=== PATIENT | male | born 1985 | race Caucasian/White ===

== ENCOUNTER 2017-08-20 19:22 | Emergency (ER) | payer MEDICAID ==
[~2017-08-20] VITALS: Ht 170.2 cm; Wt 83.9 kg
[2017-08-20] MEDS ORDERED: NKM (19:29)
[2017-08-20] MEDS ORDERED: PREDNISONE20 MG ORAL (20:22)
[2017-08-20] MEDS ORDERED: CIPROFLOXACIN500 M2 ORAL (20:22)
[2017-08-20] MEDS ORDERED: PROMETHAZINE-D118 ML ORAL (20:22)
[2017-08-20 20:28] VITALS: BP 121/75
[2017-08-20 20:32] VITALS: BP 121/75
--- NOTE | 2017-08-20 20:43 | Emergency Room Report ---
History of Present Illness General Chief Complaint: Sore Throat Source: Patient Present Illness [facility] The patient is a 32-year-old male presenting for sore throat and cough for the past week. pain is described as an 8/10 dull ache primarily to the back the throat. Worse with coughing. He states that he frequently gets pharyngitis and is allergic to PCN and macrolides so he is given cipro which usually works. Allergies: Coded Allergies: ERYTHROMYCIN BASE (Verified Allergy, Unknown, 08/20/17) PENICILLINS (Verified Allergy, Unknown, 08/20/17) Patient History Past Medical History: see triage record Pertinent Family History: none Reviewed Nursing Documentation: PMH: Agreed, PSxH: Agreed Nursing Documentation-PMH Past Medical History: No Stated History Review of Systems All Other Systems: negative except mentioned in HPI Physical Exam Vital Signs Date Time Temp Pulse Resp B/P (MAP) Pulse Ox O2 Delivery O2 Flow Rate FiO2 08/20/17 19:26 98.2 73 18 121/75 98 Room Air Sp02 EP Interpretation: reviewed, normal General Appearance: no apparent distress, alert, GCS 15, non-toxic Head: normocephalic, atraumatic Eyes: bilateral eye normal inspection, bilateral eye PERRL ENT: hearing grossly normal, normal pharynx, no angioedema, normal voice, uvula midline, tonsillar swelling, pharyngeal erythema Neck: full range of motion, supple/symm/no masses Respiratory: chest non-tender, lungs clear, normal breath sounds, speaking full sentences Cardiovascular #1: regular rate, rhythm, no edema Musculoskeletal: back normal, gait/station normal, normal range of motion, non- tender Neurologic: alert, oriented x3, responsive, motor strength/tone normal, sensory intact, speech normal Psychiatric: judgement/insight normal, memory normal, mood/affect normal, no suicidal/homicidal ideation Skin: normal color, no rash, warm/dry, well hydrated Lymphatic: adenopathy Medical Decision Making PA Attestation Dr. Martin is my supervising physician. Patient management was discussed with my supervising physician Diagnostic Impression: Primary Impression: Pharyngitis, acute Qualified Codes: J02.9 - Acute pharyngitis, unspecified ER Course The patient is a 32-year-old male presenting for sore throat and cough for the past week Differential diagnosis include but not limited to pharyngitis, sinusitis, AOM, bronchitis, PNA Physical exam: Vitals within normal limits. Afebrile. No apparent distress HEENT exam: There is bilateral tonsillar edema, erythema. Uvula midline. Moist mucous membranes. There is bilateral cervical lymphadenopathy. Lungs are clear to auscultation bilaterally Skin is warm and dry. No rash The patient will be discharged home with a prescription for ciprofloxacin as he is allergic to macrolides and penicillins and is given ER precautions. Patient will followup with primary care He was told that he should follow up with the ENT Last Vital Signs Date Time Temp Pulse Resp B/P (MAP) Pulse Ox O2 Delivery O2 Flow Rate FiO2 08/20/17 19:26 98.2 73 18 121/75 98 Room Air Status: improved Disposition: HOME, SELF-CARE Condition: Improved Scripts Prednisone* (PREDNISONE*) 20 Mg Tablet 40 MG ORAL DAILY, #10 TAB Prov: ÁNGEL FELDER.A. 08/20/17 D-Methorphan Hb/Prometh Hcl* (PROMETHAZINE-DM SYRUP*) 118 Ml Syrup 5 ML ORAL Q6H Y for For Cough, #118 ML 0 Refills Prov: ÁNGEL FELDER.A. 08/20/17 Ciprofloxacin Hcl* (CIPROFLOXACIN HCL*) 500 Mg Tablet 500 MG ORAL EVERY 12 HOURS, #14 TAB 0 Refills Prov: ÁNGEL FELDER.A. 08/20/17 Patient Instructions: Pharyngitis Additional Instructions: I discussed my findings with the patient. All questions and concerns have been answered. Treatment and medication compliance have been addressed. I advised the patient that they need to follow up with PMD in 3-5 days. Return to ED if pain remains or worsens, cough worsens or remains, you notice blood in your sputum, you notice wheezing, you experience a fever, or if needed for any reason. Patient verbalized understanding of discharge instructions. ÁNGEL FELDER Aug 20, 2017 20:43
== END 2017-08-20 20:32 | disposition home or self-care (01) ==
LOC: EMR 20:20
DX: J02.9 Acute pharyngitis, unspecified (principal); Z88.0 Allergy status to penicillin; Z88.8 Allergy status to other drugs, medicaments and biological substances
CPT/HCPCS: 99284

== ENCOUNTER 2018-01-04 20:49 | Emergency (ER) | payer MEDICAID ==
[~2018-01-04] VITALS: Ht 170.2 cm; Wt 81.6 kg
[~2018-01-04 20:49] MED LIST: CIPROFLOXACIN500 M2 ORAL; NKM; PREDNISONE20 MG ORAL; PROMETHAZINE-D118 ML ORAL
[2018-01-04 21:15] VITALS: BP 119/70
[2018-01-04] MEDS ORDERED: PSEUDOEPHEDRINE60 MG PO (21:20)
--- NOTE | 2018-01-04 21:20 | Emergency Room Report ---
History of Present Illness General Chief Complaint: Flu Like Symptoms Source: Patient Present Illness HPI Is a 32-year-old male with no past medical history. He presents with chief complaint of coughing and sore throat. He was seen by his primary care doctor 34 days ago for similar complaint and placed on Cipro. He said not getting better. He came in because coughing has specks of blood in it. Denies any other complaint. No nausea no vomiting. No shortness of breath. No calf swelling. No recent surgery or other risk factor. Allergies: Coded Allergies: ERYTHROMYCIN BASE (Verified Allergy, Unknown, 08/20/17) PENICILLINS (Verified Allergy, Unknown, 08/20/17) Patient History Past Medical History: see triage record, old chart reviewed Past Surgical History: none Pertinent Family History: none Social History: Denies: smoking Immunizations: other Reviewed Nursing Documentation: PMH: Agreed; PSxH: Agreed Nursing Documentation-PMH Past Medical History: No Stated History Review of Systems Eye: Denies: eye pain, blurred vision ENT: Denies: ear pain, nose congestion, throat swelling Respiratory: Reports: cough, sputum; Denies: shortness of breath Cardiovascular: Denies: chest pain, palpitations Gastrointestinal: Denies: abdominal pain, diarrhea, nausea, vomiting Musculoskeletal: Denies: back pain, joint pain Skin: Denies: rash Neurological: Denies: headache, numbness Endocrine: Denies: increased thirst, increased urine Hematologic/Lymphatic: Denies: easy bruising All Other Systems: negative except mentioned in HPI Physical Exam Vital Signs Date Time Temp Pulse Resp B/P (MAP) Pulse Ox O2 Delivery O2 Flow Rate FiO2 01/04/18 21:03 98.6 94 16 119/70 95 98.6 vitals normal Sp02 EP Interpretation: reviewed, normal General Appearance: well appearing, no apparent distress, alert Head: normocephalic, atraumatic Eyes: bilateral eye PERRL, bilateral eye EOMI ENT: hearing grossly normal, normal pharynx, other - left TM with effusion. Dry blood in right nares Neck: full range of motion, supple, no meningismus Respiratory: chest non-tender, lungs clear, normal breath sounds Cardiovascular #1: regular rate, rhythm, no murmur Gastrointestinal: normal bowel sounds, non tender, no mass, no organomegaly, no bruit, non-distended Musculoskeletal: back normal, gait/station normal, normal range of motion Psychiatric: mood/affect normal Skin: warm/dry Medical Decision Making Diagnostic Impression: Primary Impression: Upper respiratory infection, acute ER Course Patient with upper respiratory infection. The blood is probably from the nose. No evidence of ACS, PE, dissection to name a few. We'll discharge home. Last Vital Signs Date Time Temp Pulse Resp B/P (MAP) Pulse Ox O2 Delivery O2 Flow Rate FiO2 01/04/18 21:03 98.6 94 16 119/70 95 98.6 Status: unchanged Disposition: HOME, SELF-CARE Condition: Stable Scripts Pseudoephedrine Hcl* (SUDAFED*) 60 Mg Tablet 60 MG PO Q6H, #20 TAB Prov: ADEBAYO GALVAN M.D. 01/04/18 Additional Instructions: Follow-up with your DrJúnior in 7 days. Return if worse. ADEBAYO GALVAN M.D. Jan 04, 2018 21:20
== END 2018-01-04 21:30 | disposition home or self-care (01) ==
LOC: EMR 21:18
DX: J06.9 Acute upper respiratory infection, unspecified (principal); Z88.0 Allergy status to penicillin
CPT/HCPCS: 99283

== ENCOUNTER 2018-04-01 15:29 | Emergency (ER) | payer MEDICAID ==
[~2018-04-01] VITALS: Ht 170.2 cm; Wt 82.6 kg
[~2018-04-01 15:29] MED LIST changes: +PSEUDOEPHEDRINE60 MG PO
[2018-04-01 16:06] VITALS: BP 107/69
[2018-04-01] MEDS ORDERED: DIPHENHYDRAMINE25 M1 ORAL (16:13)
[2018-04-01] MEDS ORDERED: PREDNISONE20 MG ORAL (16:13)
[2018-04-01] MEDS ORDERED: RANITIDINE HCL150 MG ORAL (16:13)
[2018-04-01 16:25] VITALS: BP 107/69
--- NOTE | 2018-04-01 21:07 | Emergency Room Report ---
History of Present Illness General Chief Complaint: Allergic Reaction Source: Patient Present Illness HPI 33-year-old male presents to ED complaining of rash and swelling to his hands 2 days. Patient states symptoms started shortly after starting doxycycline. Was prescribed doxycycline for symptoms of runny nose, cough, congestion by his PMD. Notes allergies to erythromycin and penicillin previously. Denies any throat swelling or tongue swelling. Denies any shortness of breath. Denies any fevers or chills. No other aggravating relieving factors. Denies any other associated symptoms Allergies: Coded Allergies: DOXYCYCLINE (Verified Allergy, Unknown, 04/01/18) ERYTHROMYCIN BASE (Verified Allergy, Unknown, 08/20/17) PENICILLINS (Verified Allergy, Unknown, 08/20/17) Patient History Past Medical History: none Past Surgical History: none Pertinent Family History: none Social History: Denies: smoking, alcohol use, drug use Immunizations: UTD Reviewed Nursing Documentation: PMH: Agreed; PSxH: Agreed Nursing Documentation-PMH Past Medical History: No Stated History Review of Systems All Other Systems: negative except mentioned in HPI Physical Exam Vital Signs Date Time Temp Pulse Resp B/P (MAP) Pulse Ox O2 Delivery O2 Flow Rate FiO2 04/01/18 15:31 98.0 102 18 107/69 94 Room Air 98.1 Sp02 EP Interpretation: reviewed, normal General Appearance: no apparent distress, alert, GCS 15, non-toxic Head: normocephalic, atraumatic Eyes: bilateral eye normal inspection, bilateral eye PERRL ENT: hearing grossly normal, normal pharynx, no angioedema, normal voice Neck: full range of motion, supple/symm/no masses Respiratory: chest non-tender, lungs clear, normal breath sounds, speaking full sentences Cardiovascular #1: regular rate, rhythm, no edema Cardiovascular #2: 2+ carotid (R), 2+ carotid (L), 2+ radial (R), 2+ radial (L) , 2+ dorsalis pedis (R), 2+ dorsalis pedis (L) Gastrointestinal: normal bowel sounds, non tender, soft, non-distended, no guarding, no rebound Rectal: deferred Genitourinary: normal inspection, no CVA tenderness Musculoskeletal: swelling - bilatearl hands and feet Neurologic: alert, oriented x3, responsive, motor strength/tone normal, sensory intact, speech normal Psychiatric: judgement/insight normal, memory normal, mood/affect normal, no suicidal/homicidal ideation Reflexes: 3+ bicep (R), 3+ bicep (L), 3+ tricep (R), 3+ tricep (L), 3+ knee (R) , 3+ knee (L) Skin: other - urticaria to bilateral hands, feet Lymphatic: no adenopathy Medical Decision Making Diagnostic Impression: Primary Impression: Allergic reaction Qualified Codes: T78.40XA - Allergy, unspecified, initial encounter ER Course Hospital Course 33-year-old male presents ED complaining of rash to hands and swelling after taking doxycycline Differential diagnoses include: allergic reaction, angioedema Clinical course Patient placed on stretcher. After initial history, physical exam reveals a male in no acute distress. There is urticarial rash noted to bilateral hands and feet. Swelling noted to the hands and feet. No stridor or tongue swelling. Lungs clear. I ordered benedryl, prednisone, pepcid here. Head and neck exam relatively unremarkable. I do not believe patient requires antibiotics at this time. Recommend discontinuing doxycycline without alternative antibiotic i. I feel this is a highly complex case requiring extensive working including EKG/Rhythm strip, Xray/CT/US, Blood/urine lab work, repeat exams while in ED, and administration of strong opiates/narcotics for pain control, admission to hospital or close patient follow up. Diagnosis - allergic reaction Stable and discharged to home with prescriptions for Zantac, prednisone, Benadryl. Followup with PMD. Return to ED if symptoms recur or worsen Last Vital Signs Date Time Temp Pulse Resp B/P (MAP) Pulse Ox O2 Delivery O2 Flow Rate FiO2 04/01/18 16:25 98.1 96 18 107/69 98 Room Air 98.1 Status: improved Disposition: HOME, SELF-CARE Condition: Stable Scripts Ranitidine Hcl* (ZANTAC*) 150 Mg Tablet 150 MG ORAL TWICE A DAY for 5 Days, #30 TAB Prov: Son Lester MD 04/01/18 Diphenhydramine Hcl* (DIPHENHYDRAMINE HCL*) 25 Mg Capsule 25 MG ORAL Q6H PRN for Itching for 5 Days, #30 CAP 0 Refills Prov: Son Lester MD 04/01/18 Prednisone* (PREDNISONE*) 20 Mg Tablet 40 MG ORAL DAILY, #10 TAB Prov: Son Lester MD 04/01/18 Referrals: [facility],REFERRING (PCP) Patient Instructions: Drug Allergy Son Lester MD Apr 01, 2018 21:07
== END 2018-04-01 16:34 | disposition home or self-care (01) ==
LOC: EMR 16:08
DX: T78.40XA Allergy, unspecified, initial encounter (principal); X58.XXXA Exposure to other specified factors, initial encounter; L50.0 Allergic urticaria; Z88.0 Allergy status to penicillin; Z88.1 Allergy status to other antibiotic agents
CPT/HCPCS: 99284; J7512